=== PATIENT | male | born 1985 | race African-American/Black ===

== ENCOUNTER 2022-04-12 17:23 | Emergency (ER) | payer MEDICAID ==
[~2022-04-12] VITALS: Ht 175.3 cm; Wt 73.0 kg
[2022-04-12] MEDS ORDERED: FAMOTIDINE 20MG/2ML VIAL IV STA (17:33)
[2022-04-12] MEDS ORDERED: METOCLOPRAMIDE HCL 10MG/2ML VIAL IV STA (17:33)
[2022-04-12] MEDS ORDERED: SODIUM CHLORIDE 0.9% 1,000 ML IV ONE ×2 (17:45)
[2022-04-12] MEDS ORDERED: INSULIN REGULAR (HUMULIN R) 300UNITS/3ML VIAL IV ONE ×2 (17:45→20:30)
[2022-04-12] MEDS ORDERED: ACETAMINOPHEN 325MG TABLET PO ONE (18:15)
[2022-04-12 18:34] LABS: BASOPHILS % 0.9 % (0.0-2.0); EOSINOPHILS % 1.3 % (0.0-5.0); HEMATOCRIT. 41.3 % (42.0-52.0); HEMOGLOBIN. 14.1 g/dL (14.0-18.0); LYMPHOCYTES % 20.8 % (20.0-50.0); MEAN CORPUSCULAR HEMOGLOBIN 30.6 pg (28.0-32.0); MEAN CORPUSCULAR VOLUME 89.8 fL (80.0-94.0); MEAN PLATELET VOLUME 8.4 fl (7.4-10.4); MONOCYTES % 8.6 % (2.0-8.0); NEUTROPHILS % 68.4 % (40.0-76.0); PLATELET 224 x1000/uL (130-400); RED CELL DISTRIBUTION WIDTH 12.3 % (11.6-14.6)
[2022-04-12 18:36] LABS: CHLORIDE 100 mEq/L (98-107)
[2022-04-12 18:48] LABS: BETA HYDROXYBUTYRATE 0.1 mMol/L (0.0-0.3)
[2022-04-12] MEDS ORDERED: INSULIN REGULAR (HUMULIN R) 300UNITS/3ML VIAL IV NR (19:00)
[2022-04-12 22:00] VITALS: BP 121/82
== END 2022-04-12 22:40 | disposition home or self-care (01) ==
LOC: ER 17:23
DX: E11.65 Type 2 diabetes mellitus with hyperglycemia (principal); I10 Essential (primary) hypertension; Z79.4 Long term (current) use of insulin; Z86.73 Personal history of transient ischemic attack (TIA), and cerebral infarction without residual deficits
CPT/HCPCS: 36415; 80053; 82010; 82962; 85025; 93005; 96361; 96374; 96375; 96376; 99284; J1815; J2765; J3490; J7030

== ENCOUNTER 2023-09-16 09:23 | Emergency (ER) | payer MEDICAID, OTHER ==
[~2023-09-16] VITALS: Ht 182.9 cm; Wt 64.0 kg
[2023-09-16 09:24] VITALS: O2SAT 98
[2023-09-16] MEDS: SODIUM CHLORIDE 0.9% 1,000 ML IV ONE (09:49)
[2023-09-16 09:51] LABS: BG BASE EXCESS -8.9 mmol/L (-2.0-2.0); BG CARBOXYHEMOGLOBIN 1.6 % (0.5-1.5); BG DEOXYHEMOGLOBIN 2.2 % (0.0-5.0); BG FRACTION INSPIRED OXYGEN 21; BG HCO3 ACT 15.8 mmol/L (22.0-26.0); BG METHEMOGLOBIN 0.3 % (0.0-1.5); BG OXYGEN SATURATION 97.8 % (92.0-98.5); BG OXYHEMOGLOBIN 95.9 % (94.0-97.0); BG PCO2 30.8 mmHg (35.0-45.0); BG PH 7.329 (7.350-7.450); BG PO2 109.4 mmHg (75.0-100.0); BG SAMPLE SITE LEFT BRACHIAL; BG TOTAL HEMOGLOBIN 13.1 g/dL (12.0-18.0); BG VENT MODE ROOM AIR
[2023-09-16 09:58] LABS: BASOPHILS % 0.8 % (0.0-2.0); EOSINOPHILS % 5.4 % (0.0-5.0); HEMOGLOBIN. 13.1 g/dL (14.0-18.0); LYMPHOCYTES % 11.8 % (20.0-50.0); MEAN CORPUSCULAR HEMOGLOBIN 31.2 pg (28.0-32.0); MEAN CORPUSCULAR HGB CONC 34.6 g/dL (31.0-37.0); MEAN CORPUSCULAR VOLUME 90.3 fL (80.0-94.0); MEAN PLATELET VOLUME 8.8 fl (7.4-10.4); MONOCYTES % 7.7 % (2.0-8.0); NEUTROPHILS % 74.3 % (40.0-76.0); PLATELET 237 x1000/uL (130-400); RED BLOOD CELL COUNT 4.21 mill/uL (4.7-6.1); RED CELL DISTRIBUTION WIDTH 12.4 % (11.6-14.6); WHITE BLOOD COUNT 6.3 x1000/uL (4.5-11.0)
[2023-09-16 10:12] LABS: INR 0.9; PROTHROMBIN TIME 10.3 sec (9.6-11.0)
[2023-09-16 10:28] LABS: ALANINE AMINOTRANSFERASE 22 IU/L (10-49); ALBUMIN 4.4 g/dL (3.2-4.8); ASPARTATE AMINOTRANSFERASE 20 IU/L (<34); BETA HYDROXYBUTYRATE 0.6 mMol/L (0.0-0.3); BILIRUBIN TOTAL 0.7 mg/dL (0.1-1.0); CALCIUM 8.7 mg/dL (8.7-10.4); CARBON DIOXIDE 17 mEq/L (21-32); CHLORIDE 105 mEq/L (98-107); CREATINE KINASE 63 IU/L (46-171); CREATININE 1.3 mg/dL (0.6-1.3); POTASSIUM 3.7 mEq/L (3.5-5.1); PROTEIN TOTAL 7.1 g/dL (6.0-8.3); SODIUM 130 mEq/L (136-145); UREA NITROGEN BLOOD 15 mg/dL (9-23)
[2023-09-16 10:30] LABS: ETHANOL BLOOD < 10 mg/dL (<10); TROPONIN I HIGH SENSITIVITY < 4 ng/L (3.0-53)
[2023-09-16 10:41] LABS: GLUCOSE 408 mg/dL (70-105)
[2023-09-16] MEDS: INSULIN REGULAR (HUMULIN R) 300UNITS/3ML VIAL IV STA (10:56)
[2023-09-16 11:05] VITALS: TEMP 98.6
[2023-09-16] MEDS ORDERED: DEXTROSE 50% WATER 50ML SYRINGE IV PRN (13:30)
[2023-09-16] MEDS ORDERED: ONDANSETRON HCL 4MG/2ML INJ IV PRN (13:30)
[2023-09-16] MEDS ORDERED: ACETAMINOPHEN 325MG TABLET PO PRN (13:30)
[2023-09-16 14:10] VITALS: BP 108/67; PULSE 87; RESP 10
[2023-09-16] MEDS: INSULIN GLARGINE 100 UNITS/ML SUBCUT NR (14:10)
[2023-09-16] MEDS: KETOROLAC 30MG/ML VIAL IV PRN (14:10)
[2023-09-16] MEDS ORDERED: BLOOD SUGAR DIAGNOSTIC STRIP TEST SCH (17:00)
[2023-09-16] MEDS ORDERED: INSULIN LISPRO 100 UNITS/ML SUBCUT SCH (18:20)
[2023-09-16] MEDS ORDERED: INSULIN GLARGINE 100 UNITS/ML SUBCUT SCH (22:00)
== END 2023-09-16 16:32 | disposition left against medical advice (07) ==
LOC: ER 09:46 → EDBEDREQ 11:03 → EDBEDREQTM 11:03 → CANBEDREQ 16:27 → ER 16:32
DX: R41.82 Altered mental status, unspecified (principal); E11.65 Type 2 diabetes mellitus with hyperglycemia; I10 Essential (primary) hypertension; Z86.73 Personal history of transient ischemic attack (TIA), and cerebral infarction without residual deficits; F12.10 Cannabis abuse, uncomplicated
CPT/HCPCS: 80053; 82010; 80320; 82550; 82962; 83880; 83605; 83690; 85025; 85610; 86850; 86900; 86901; 87040; 84484; 36415; 84145; 73502; 71045; 70450; 72125; 82805; 82375; 93005; 96361; 96372; 96374; 96375; 99285; 36600; J1815 ×2; J1885; J7030; Z7610 ×3; G0480

== ENCOUNTER 2023-10-18 07:09 | Emergency (ER) | payer MEDICAID, OTHER ==
[~2023-10-18] VITALS: Ht 182.9 cm; Wt 82.0 kg
[2023-10-18 07:10] VITALS: O2SAT 100
[2023-10-18] MEDS: SODIUM CHLORIDE 0.9% 1,000 ML IV ONE (07:30)
[2023-10-18 07:46] LABS: BASOPHILS % 1.1 % (0.0-2.0); EOSINOPHILS % 1.1 % (0.0-5.0); HEMATOCRIT. 31.9 % (42.0-52.0); HEMOGLOBIN. 11.2 g/dL (14.0-18.0); LYMPHOCYTES % 15.2 % (20.0-50.0); MEAN CORPUSCULAR HEMOGLOBIN 30.7 pg (28.0-32.0); MEAN CORPUSCULAR VOLUME 87.6 fL (80.0-94.0); MEAN PLATELET VOLUME 7.9 fl (7.4-10.4); MONOCYTES % 6.6 % (2.0-8.0); PLATELET 316 x1000/uL (130-400); RED BLOOD CELL COUNT 3.64 mill/uL (4.7-6.1); RED CELL DISTRIBUTION WIDTH 12.9 % (11.6-14.6); WHITE BLOOD COUNT 5.6 x1000/uL (4.5-11.0)
[2023-10-18 07:55] LABS: PROTHROMBIN TIME 10.8 sec (9.6-11.0)
[2023-10-18 07:56] LABS: CHLORIDE 102 mEq/L (98-107); POTASSIUM 3.9 mEq/L (3.5-5.1); SODIUM 136 mEq/L (136-145)
[2023-10-18 07:57] LABS: CALCIUM 10.2 mg/dL (8.7-10.4); CARBON DIOXIDE 23 mEq/L (21-32)
[2023-10-18 08:02] LABS: CREATININE 1.5 mg/dL (0.6-1.3); GLUCOSE 353 mg/dL (70-105); UREA NITROGEN BLOOD 22 mg/dL (9-23)
[2023-10-18 08:03] LABS: TROPONIN I HIGH SENSITIVITY < 4 ng/L (3.0-53)
[2023-10-18 08:04] LABS: ALANINE AMINOTRANSFERASE 24 IU/L (10-49); ALBUMIN 4.7 g/dL (3.2-4.8); ASPARTATE AMINOTRANSFERASE 17 IU/L (<34); BILIRUBIN DIRECT 0.2 mg/dL (<=3.0); BILIRUBIN TOTAL 0.6 mg/dL (0.1-1.0)
[2023-10-18 09:17] LABS: BETA HYDROXYBUTYRATE 0.1 mMol/L (0.0-0.3)
[2023-10-18] MEDS: METOCLOPRAMIDE HCL 10MG/2ML VIAL IV ONE (09:32)
[2023-10-18] MEDS ORDERED: DEXTROSE 50% WATER 50ML SYRINGE IV PRN (10:00)
[2023-10-18 10:13] VITALS: BP 107/76; PULSE 80; RESP 16; TEMP 98
[2023-10-18] MEDS ORDERED: ONDA4TAB11 PO (10:32)
[2023-10-18] MEDS ORDERED: BLOOD SUGAR DIAGNOSTIC STRIP TEST SCH (13:00)
[2023-10-18] MEDS ORDERED: INSULIN LISPRO 100 UNITS/ML SUBCUT SCH (13:20)
== END 2023-10-18 10:14 | disposition home or self-care (01) ==
LOC: ER 07:09
DX: E11.65 Type 2 diabetes mellitus with hyperglycemia (principal); N17.9 Acute kidney failure, unspecified; E86.0 Dehydration; F12.10 Cannabis abuse, uncomplicated; Z98.890 Other specified postprocedural states
CPT/HCPCS: 80076; 80048; 82010; 82962; 83605; 83690; 85025; 85610; 87040; 84484; 36415; 71045; 73630; 93005; 96361; 96374; 99284; J2765; J7030; Z7610

== ENCOUNTER 2024-10-14 17:21 | Inpatient (IN) | payer MEDICAID ==
[~2024-10-14] VITALS: Ht 188 cm; Wt 61.7 kg
[~2024-10-14 17:21] MED LIST: ONDA-239 PO
[2024-10-14] MEDS: DEXTROSE 10% WATER 500 ML IV ONE (18:15)
[2024-10-14] MEDS: DEXTROSE 50% WATER 50ML SYRINGE IV ONE (18:20)
[2024-10-14 18:43] LABS: CHLORIDE 119 mEq/L (98-107); POTASSIUM 4.2 mEq/L (3.5-5.1); SODIUM 140 mEq/L (136-145)
[2024-10-14 18:44] LABS: CARBON DIOXIDE 13 mEq/L (21-32)
[2024-10-14 18:48] LABS: BASOPHILS % 1.2 % (0.0-2.0); EOSINOPHILS % 1.5 % (0.0-5.0); HEMATOCRIT. 27.2 % (42.0-52.0); HEMOGLOBIN. 9.1 g/dL (14.0-18.0); LYMPHOCYTES % 16.6 % (20.0-50.0); MEAN CORPUSCULAR HGB CONC 33.5 g/dL (31.0-37.0); MEAN CORPUSCULAR VOLUME 92.7 fL (80.0-94.0); MEAN PLATELET VOLUME 8.2 fl (7.4-10.4); NEUTROPHILS % 74.7 % (40.0-76.0); PLATELET 189 x1000/uL (130-400); RED BLOOD CELL COUNT 2.93 mill/uL (4.7-6.1); WHITE BLOOD COUNT 5.1 x1000/uL (4.5-11.0)
[2024-10-14 18:49] LABS: ETHANOL BLOOD < 10 mg/dL (<10); TROPONIN I HIGH SENSITIVITY 4 ng/L (3.0-53); UREA NITROGEN BLOOD 18 mg/dL (9-23)
[2024-10-14 19:00] LABS: GLUCOSE 114 mg/dL (70-105)
[2024-10-14 19:06] LABS: INR 0.9; PROTHROMBIN TIME 10.2 sec (9.6-11.0)
[2024-10-14] MEDS: SODIUM CHLORIDE 0.9% 1,000 ML IV ONE ×2 (20:05→21:07)
[2024-10-14] MEDS: ACETAMINOPHEN 325MG TABLET PO STA (20:37)
[2024-10-14] MEDS: ONDANSETRON 4MG ODT PO STA (20:37)
[2024-10-14] MEDS ORDERED: SODIUM CHLORIDE 0.9% 1,000 ML IV ONE (21:15)
[2024-10-14] MEDS: KETOROLAC 15MG/ML VIAL IV ONE (22:46)
[2024-10-15] VITALS (9 sets, daily range): BP systolic 75–106; BP diastolic 35–68; PULSE 45–92; RESP 16–19; TEMP 36.3–36.5; O2SAT 96–100
[2024-10-15] MEDS ORDERED: CLONIDINE 0.1MG TABLET PO PRN (01:00)
[2024-10-15] MEDS ORDERED: DEXTROSE 50% WATER 50ML SYRINGE IV PRN (01:00)
[2024-10-15] MEDS ORDERED: NALOXONE HCL 0.4MG/ML VIAL IV PRN (01:15)
[2024-10-15] MEDS: DEXTROSE 5% WATER 1,000 ML IV SCH (01:40)
[2024-10-15] MEDS: BLOOD SUGAR DIAGNOSTIC STRIP TEST SCH (06:03)
[2024-10-15 06:53] LABS: CLARITY URINE CLEAR (CLEAR); COLOR URINE YELLOW (YELLOW); GLUCOSE URINE TRACE (NEGATIVE); KETONES URINE NEGATIVE (NEGATIVE); LEUKOCYTE ESTERASE URINE NEGATIVE (NEGATIVE); NITRITE URINE NEGATIVE (NEGATIVE); OCCULT BLOOD URINE NEGATIVE (NEGATIVE); PH URINE 5.5 (4.5-8.0); PROTEIN URINE 1+ (NEGATIVE); SPECIFIC GRAVITY URINE 1.012 (1.005-1.030); UROBILINOGEN URINE 0.2 E.U./dL (0.2-1.0)
[2024-10-15 07:08] LABS: POTASSIUM 4.9 mEq/L (3.5-5.1)
[2024-10-15 07:11] LABS: HEMATOCRIT 25.7 % (42.0-52.0); HEMOGLOBIN 8.7 g/dL (14.0-18.0); MEAN CORPUSCULAR HGB CONC 33.8 g/dL (31.0-37.0); MEAN CORPUSCULAR VOLUME 91.7 fL (80.0-94.0); PLATELET 197 x1000/uL (130-400); RED CELL DISTRIBUTION WIDTH 12.9 % (11.6-14.6); WHITE BLOOD COUNT 6.6 x1000/uL (4.5-11.0)
[2024-10-15 07:13] LABS: *AMPHETAMINES SCREEN URINE NEGATIVE (NEGATIVE); *BARBITURATES SCREEN URINE NEGATIVE (NEGATIVE); *BENZODIAZEPINES SCREEN URINE NEGATIVE (NEGATIVE); *COCAINE SCREEN URINE NEGATIVE (NEGATIVE); CANNABINOID URINE SCREEN PRESUMPTIVE POSITIVE (NEGATIVE); ECSTASY MDMA SCREEN URINE NEGATIVE (NEGATIVE); METHADONE URINE SCREEN NEGATIVE (NEGATIVE); OPIATES URINE SCREEN NEGATIVE (NEGATIVE); PHENCYCLIDINE URINE SCREEN NEGATIVE (NEGATIVE)
[2024-10-15 07:16] LABS: THYROID STIMULATING HORMONE 2.76 uIU/mL (0.55-4.78)
[2024-10-15 07:19] LABS: BACTERIA URINE TRACE; RBC URINE NONE SEEN /hpf (0-2); SQUAMOUS EPITHELIAL CELL URINE NONE SEEN /lpf (RARE/1+); WBC URINE 0-2 /hpf (0-2)
[2024-10-15] MEDS: HYDROCODONE/ACETAMINOPHEN 5/325MG TABLET PO PRN (08:29)
[2024-10-15] MEDS: ENOXAPARIN 40MG/0.4ML SYR SUBCUT SCH (08:30)
[2024-10-15] MEDS: ONDANSETRON HCL 4MG/2ML INJ IV SCH (13:52)
[2024-10-15] MEDS: SODIUM CHLORIDE 0.9% 1,000 ML IV ONE (16:40)
[2024-10-15] MEDS: MIDODRINE HCL 5MG TABLET PO SCH (18:07)
[2024-10-15] MEDS: DEXT 5%/0.9% NACL 1,000 ML IV SCH (18:20)
[2024-10-15] MEDS: INSULIN LISPRO 100 UNITS/ML SUBCUT SCH (21:38)
[2024-10-16] MEDS: ONDANSETRON HCL 4MG/2ML INJ IV PRN (01:52)
[2024-10-16 04:00] VITALS: BP 98/46; PULSE 73; RESP 18; TEMP 36.4; O2SAT 98
[2024-10-16 08:00] VITALS: BP 81/38; PULSE 81; RESP 17; TEMP 36.4; O2SAT 100
[2024-10-16 12:00] VITALS: BP 98/63; PULSE 87; RESP 19; TEMP 36.9; O2SAT 99
[2024-10-16 16:00] VITALS: BP 91/52; PULSE 64; RESP 18; TEMP 36.9; O2SAT 100
[2024-10-16 20:00] VITALS: BP 109/65; PULSE 86; RESP 18; TEMP 36.7; O2SAT 97
[2024-10-16 22:08] LABS: CARBON DIOXIDE 16 mEq/L (21-32); CHLORIDE 117 mEq/L (98-107); POTASSIUM 5.9 mEq/L (3.5-5.1); SODIUM 140 mEq/L (136-145)
[2024-10-16 22:09] LABS: CALCIUM 7.7 mg/dL (8.7-10.4)
[2024-10-16 22:13] LABS: CREATININE 2.3 mg/dL (0.6-1.3); GLUCOSE 203 mg/dL (70-105)
[2024-10-16 22:14] LABS: UREA NITROGEN BLOOD 24 mg/dL (9-23)
[2024-10-16 22:15] LABS: ALANINE AMINOTRANSFERASE 51 IU/L (10-49); ALBUMIN 3.1 g/dL (3.2-4.8); ASPARTATE AMINOTRANSFERASE 30 IU/L (<34)
[2024-10-16 22:16] LABS: BILIRUBIN TOTAL 0.3 mg/dL (0.1-1.0)
[2024-10-16 22:21] LABS: PROTEIN TOTAL 5.2 g/dL (6.0-8.3)
[2024-10-16 23:55] VITALS: BP 106/68; PULSE 86; RESP 19; TEMP 36.4; O2SAT 97
[2024-10-17 03:53] VITALS: BP 102/64; PULSE 90; RESP 18; TEMP 36.2; O2SAT 98
[2024-10-17 08:00] VITALS: BP 118/79; PULSE 93; RESP 18; TEMP 36.5; O2SAT 100
[2024-10-17 12:00] VITALS: BP 103/58; PULSE 95; RESP 18; TEMP 36.6; O2SAT 100
[2024-10-17] MEDS: SODIUM POLYSTYRENE SULFONATE 15 G/60 ML BOT PO NR (13:34)
[2024-10-17 14:47] LABS: BASOPHILS % 0.9 % (0.0-2.0); EOSINOPHILS % 1.8 % (0.0-5.0); HEMATOCRIT. 24.2 % (42.0-52.0); LYMPHOCYTES % 22.6 % (20.0-50.0); MEAN CORPUSCULAR HEMOGLOBIN 30.8 pg (28.0-32.0); MEAN CORPUSCULAR HGB CONC 33.1 g/dL (31.0-37.0); MEAN CORPUSCULAR VOLUME 93.3 fL (80.0-94.0); MEAN PLATELET VOLUME 8.1 fl (7.4-10.4); MONOCYTES % 8.8 % (2.0-8.0); NEUTROPHILS % 65.9 % (40.0-76.0); PLATELET 167 x1000/uL (130-400); RED BLOOD CELL COUNT 2.59 mill/uL (4.7-6.1); RED CELL DISTRIBUTION WIDTH 14.3 % (11.6-14.6); WHITE BLOOD COUNT 4.5 x1000/uL (4.5-11.0)
[2024-10-17 14:58] LABS: CHLORIDE 115 mEq/L (98-107); POTASSIUM 5.5 mEq/L (3.5-5.1); SODIUM 140 mEq/L (136-145)
[2024-10-17 14:59] LABS: CALCIUM 7.9 mg/dL (8.7-10.4); CARBON DIOXIDE 18 mEq/L (21-32)
[2024-10-17 15:04] LABS: CREATININE 1.9 mg/dL (0.6-1.3); GLUCOSE 154 mg/dL (70-105); UREA NITROGEN BLOOD 26 mg/dL (9-23)
[2024-10-17 15:06] LABS: ALANINE AMINOTRANSFERASE 110 IU/L (10-49); ALBUMIN 3.3 g/dL (3.2-4.8); AMMONIA < 17 uMol/L (<32); ASPARTATE AMINOTRANSFERASE 108 IU/L (<34); PROTEIN TOTAL 5.3 g/dL (6.0-8.3)
[2024-10-17 15:07] LABS: BILIRUBIN TOTAL 0.4 mg/dL (0.1-1.0)
[2024-10-17 16:00] VITALS: BP 121/71; PULSE 83; RESP 18; TEMP 36.6; O2SAT 97
[2024-10-17 17:39] LABS: IRON 70 ug/dL (65-175)
[2024-10-17 17:40] LABS: C REACTIVE PROTEIN HIGH SENS 2.96 mg/l (<1.00)
[2024-10-17 17:42] LABS: TOTAL IRON BINDING CAPACITY 184 ug/dl (250-425)
[2024-10-17] MEDS: LOPERAMIDE HCL 2MG CAPSULE PO SCH (17:44)
[2024-10-17 18:55] LABS: FOLIC ACID (FOLATE) SERUM 7.44 ng/mL (>5.38)
[2024-10-17 18:56] LABS: FERRITIN 499 ng/mL (22-322); VITAMIN B12 SERUM 487 pg/mL (211-911)
[2024-10-17 20:00] VITALS: BP 103/60; PULSE 94; RESP 20; TEMP 36.6; O2SAT 98
[2024-10-18] VITALS: BP_SYST 101; BP_SYST 102; BP_SYST 98; BP_DIAS 42; BP_DIAS 48; BP_DIAS 63; PULSE 94; RESP 20; TEMP 36.9; O2SAT 95
[2024-10-18 04:00] VITALS: BP 105/66; PULSE 92; RESP 20; TEMP 36.9; O2SAT 98
[2024-10-18 07:56] VITALS: BP_SYST 104; BP_SYST 105; BP_DIAS 57; BP_DIAS 60; PULSE 104; PULSE 107; RESP 20; TEMP 36.7; O2SAT 100
[2024-10-18] MEDS: PANTOPRAZOLE 40MG DR TABLET PO SCH (08:06)
[2024-10-18 09:11] LABS: CALCIUM 8.3 mg/dL (8.7-10.4); CARBON DIOXIDE 16 mEq/L (21-32); CHLORIDE 119 mEq/L (98-107); POTASSIUM 5.2 mEq/L (3.5-5.1); SODIUM 146 mEq/L (136-145)
[2024-10-18 09:16] LABS: CREATININE 2.3 mg/dL (0.6-1.3); GLUCOSE 300 mg/dL (70-105)
[2024-10-18 09:17] LABS: UREA NITROGEN BLOOD 25 mg/dL (9-23)
[2024-10-18 09:19] LABS: PHOSPHORUS 2.8 mg/dL (2.5-4.9)
[2024-10-18] MEDS: SODIUM ZIRCONIUM CYCLOSILICATE 10GM/PACKET PO NR (10:43)
[2024-10-18 12:03] VITALS: BP 121/80; PULSE 87; RESP 18; TEMP 36.6; O2SAT 98
[2024-10-18] MEDS: SODIUM BICARBONATE 100 MEQ in DEXTROSE 5% WATER 900 ML IV SCH (13:00)
[2024-10-18] MEDS: INSULIN GLARGINE 100 UNITS/ML SUBCUT SCH (14:19)
[2024-10-18] MEDS: MAGNESIUM 2 G PREMIX 50 ML IV NR (15:37)
[2024-10-18 16:00] VITALS: BP 128/87; PULSE 77; RESP 20; TEMP 36.8; O2SAT 100
[2024-10-18 20:00] VITALS: BP_SYST 103; BP_SYST 106; BP_SYST 89; BP_DIAS 55; BP_DIAS 63; BP_DIAS 67; PULSE 90; RESP 18; TEMP 36.6; O2SAT 99
[2024-10-19] VITALS: BP 105/63; PULSE 81; RESP 18; TEMP 36.4; O2SAT 95
[2024-10-19 04:00] VITALS: BP 102/56; PULSE 89; RESP 20; TEMP 36.8; O2SAT 96
[2024-10-19 06:11] LABS: CHLORIDE 115 mEq/L (98-107); POTASSIUM 5.5 mEq/L (3.5-5.1); SODIUM 142 mEq/L (136-145)
[2024-10-19 06:12] LABS: CALCIUM 8.1 mg/dL (8.7-10.4); CARBON DIOXIDE 20 mEq/L (21-32)
[2024-10-19 06:16] LABS: UREA NITROGEN BLOOD 20 mg/dL (9-23)
[2024-10-19 06:17] LABS: CREATININE 2.3 mg/dL (0.6-1.3); GLUCOSE 214 mg/dL (70-105)
[2024-10-19 06:19] LABS: ALANINE AMINOTRANSFERASE 98 IU/L (10-49); ALBUMIN 3.2 g/dL (3.2-4.8); ASPARTATE AMINOTRANSFERASE 54 IU/L (<34); BILIRUBIN DIRECT < 0.1 mg/dL (<=3.0); BILIRUBIN TOTAL 0.3 mg/dL (0.1-1.0); PHOSPHORUS 2.8 mg/dL (2.5-4.9); PROTEIN TOTAL 5.2 g/dL (6.0-8.3)
[2024-10-19 06:31] LABS: HEPATITIS B SURFACE ANTIGEN NEGATIVE (Negative)
[2024-10-19 06:51] LABS: HEPATITIS A AB IGM NEGATIVE (Negative)
[2024-10-19 06:52] LABS: HEPATITIS B CORE AB IGM NEGATIVE (Negative); HEPATITIS C AB NON REACTIVE (Neg) (Negative)
[2024-10-19 08:10] VITALS: BP 131/80; PULSE 80; RESP 18; TEMP 36.7; O2SAT 97
[2024-10-19] MEDS: SODIUM ZIRCONIUM CYCLOSILICATE 10GM/PACKET PO NR (08:15)
[2024-10-19 08:17] LABS: EOSINOPHILS % 2.6 % (0.0-5.0); HEMOGLOBIN. 7.4 g/dL (14.0-18.0); LYMPHOCYTES % 25.1 % (20.0-50.0); MEAN CORPUSCULAR HEMOGLOBIN 31.3 pg (28.0-32.0); MEAN CORPUSCULAR HGB CONC 33.6 g/dL (31.0-37.0); MEAN CORPUSCULAR VOLUME 93.2 fL (80.0-94.0); MEAN PLATELET VOLUME 8.6 fl (7.4-10.4); MONOCYTES % 8.8 % (2.0-8.0); NEUTROPHILS % 62.5 % (40.0-76.0); PLATELET 148 x1000/uL (130-400); RED BLOOD CELL COUNT 2.36 mill/uL (4.7-6.1); RED CELL DISTRIBUTION WIDTH 14.5 % (11.6-14.6); WHITE BLOOD COUNT 4.3 x1000/uL (4.5-11.0)
[2024-10-19] MEDS: INSULIN GLARGINE 100 UNITS/ML SUBCUT SCH (09:49)
[2024-10-19] MEDS ORDERED: ALBUTEROL (0.5%) 2.5MG/0.5ML NEB HHN NR (11:00)
[2024-10-19 11:58] VITALS: BP 91/55; PULSE 86; RESP 20; TEMP 36.6; O2SAT 97
[2024-10-19] MEDS: SORBITOL 70% SOLN 30ML PO SCH (12:19)
[2024-10-19 15:51] VITALS: BP 144/91; PULSE 93; RESP 18; TEMP 36.8; O2SAT 98
[2024-10-19 20:00] VITALS: BP 114/70; PULSE 82; RESP 18; TEMP 36.6; O2SAT 97
[2024-10-20] VITALS: BP 124/82; PULSE 95; RESP 18; TEMP 36.4; O2SAT 97
[2024-10-20] MEDS ORDERED: NALOXONE HCL 0.4MG/ML VIAL IV PRN (01:45)
[2024-10-20] MEDS ORDERED: TRAMADOL 50MG TABLET PO PRN (01:45)
[2024-10-20] MEDS: GABAPENTIN 400MG CAPSULE PO SCH (01:45)
[2024-10-20 04:00] VITALS: BP 123/87; PULSE 86; RESP 18; TEMP 36.3; O2SAT 99
[2024-10-20 07:25] LABS: BASOPHILS % 0.8 % (0.0-2.0); HEMATOCRIT. 25.1 % (42.0-52.0); HEMOGLOBIN. 8.3 g/dL (14.0-18.0); LYMPHOCYTES % 19.9 % (20.0-50.0); MEAN CORPUSCULAR HEMOGLOBIN 31.2 pg (28.0-32.0); MEAN CORPUSCULAR HGB CONC 33.2 g/dL (31.0-37.0); MEAN CORPUSCULAR VOLUME 93.7 fL (80.0-94.0); MONOCYTES % 9.3 % (2.0-8.0); PLATELET 169 x1000/uL (130-400); RED BLOOD CELL COUNT 2.67 mill/uL (4.7-6.1); RED CELL DISTRIBUTION WIDTH 14.7 % (11.6-14.6); WHITE BLOOD COUNT 5.2 x1000/uL (4.5-11.0)
[2024-10-20 07:42] LABS: INR 0.9
[2024-10-20] MEDS: GABAPENTIN 300MG CAPSULE PO SCH (08:00)
[2024-10-20 08:16] LABS: CALCIUM 8.6 mg/dL (8.7-10.4)
[2024-10-20 08:37] LABS: CREATININE 1.6 mg/dL (0.6-1.3)
[2024-10-20 12:04] VITALS: BP 129/71; PULSE 87; RESP 18; TEMP 36.6; O2SAT 99
[2024-10-20] MEDS ORDERED: ETOMIDATE 2MG/ML 10ML VIAL IV ONE (13:13)
[2024-10-20] MEDS ORDERED: PROPOFOL 200MG/20ML VIAL IV ONE (13:13)
[2024-10-20] MEDS ORDERED: HYDRALAZINE 20MG/ML VIAL IV PRN (14:15)
[2024-10-20] MEDS ORDERED: GLYCOPYRROLATE 0.2 MG/ML 2ML VIAL IV PRN (14:15)
[2024-10-20] MEDS ORDERED: DEXAMETHASONE 4MG/ML 1ML VIAL IV PRN (14:15)
[2024-10-20] MEDS ORDERED: ONDANSETRON HCL 4MG/2ML INJ IV PRN (14:15)
[2024-10-20] MEDS ORDERED: HYDROMORPHONE HCL/PF 1MG/ML INJ IV PRN ×3 (14:15)
[2024-10-20] MEDS ORDERED: LABETALOL 5MG/ML 4ML INJ IV PRN (14:15)
[2024-10-20 16:00] VITALS: BP 94/62; PULSE 97; RESP 20; TEMP 36.9; O2SAT 100
[2024-10-20 20:00] VITALS: BP 110/74; PULSE 90; RESP 18; TEMP 36.3; O2SAT 99
[2024-10-21] VITALS: BP 125/73; PULSE 97; RESP 19; TEMP 36.3; O2SAT 100
[2024-10-21 04:00] VITALS: BP 114/68; PULSE 89; RESP 18; TEMP 36.6; O2SAT 100
[2024-10-21 08:00] VITALS: BP 128/86; PULSE 74; RESP 20; TEMP 36.7; O2SAT 97
[2024-10-21 09:20] LABS: POTASSIUM 4.9 mEq/L (3.5-5.1)
[2024-10-21 09:21] LABS: BASOPHILS % 0.7 % (0.0-2.0); CALCIUM 8.6 mg/dL (8.7-10.4); EOSINOPHILS % 1.5 % (0.0-5.0); HEMATOCRIT. 25.8 % (42.0-52.0); HEMOGLOBIN. 8.7 g/dL (14.0-18.0); LYMPHOCYTES % 19.4 % (20.0-50.0); MEAN CORPUSCULAR HEMOGLOBIN 31.2 pg (28.0-32.0); MEAN CORPUSCULAR HGB CONC 33.8 g/dL (31.0-37.0); MEAN CORPUSCULAR VOLUME 92.3 fL (80.0-94.0); MONOCYTES % 7.7 % (2.0-8.0); NEUTROPHILS % 70.7 % (40.0-76.0); PLATELET 162 x1000/uL (130-400); RED BLOOD CELL COUNT 2.79 mill/uL (4.7-6.1); RED CELL DISTRIBUTION WIDTH 13.8 % (11.6-14.6); WHITE BLOOD COUNT 4.2 x1000/uL (4.5-11.0)
[2024-10-21 09:26] LABS: CREATININE 1.7 mg/dL (0.6-1.3)
[2024-10-21 12:00] VITALS: BP 123/75; PULSE 76; RESP 20; TEMP 36.7; O2SAT 95
[2024-10-21] MEDS: MESALAMINE 400 MG CAPSULE.DR PO SCH (12:29)
[2024-10-21 16:00] VITALS: BP 101/62; PULSE 82; RESP 18; TEMP 36.4; O2SAT 94
[2024-10-21 20:00] VITALS: BP 119/74; PULSE 79; RESP 20; TEMP 36.4; O2SAT 100
[2024-10-21] MEDS ORDERED: IOHEXOL-300 100 ML BOTTLE ONE (23:43)
[2024-10-22] VITALS: BP 132/92; PULSE 82; RESP 20; TEMP 36.5; O2SAT 98
[2024-10-22 04:00] VITALS: BP 109/71; PULSE 87; RESP 20; TEMP 36.3; O2SAT 100
[2024-10-22 06:44] LABS: EOSINOPHILS % 2.3 % (0.0-5.0); HEMATOCRIT. 26.8 % (42.0-52.0); HEMOGLOBIN. 9.1 g/dL (14.0-18.0); LYMPHOCYTES % 24.7 % (20.0-50.0); MEAN CORPUSCULAR HEMOGLOBIN 31.4 pg (28.0-32.0); MEAN CORPUSCULAR HGB CONC 33.7 g/dL (31.0-37.0); MEAN CORPUSCULAR VOLUME 93.1 fL (80.0-94.0); MEAN PLATELET VOLUME 8.1 fl (7.4-10.4); MONOCYTES % 9.1 % (2.0-8.0); NEUTROPHILS % 62.9 % (40.0-76.0); PLATELET 183 x1000/uL (130-400); RED BLOOD CELL COUNT 2.88 mill/uL (4.7-6.1); RED CELL DISTRIBUTION WIDTH 13.5 % (11.6-14.6); WHITE BLOOD COUNT 3.6 x1000/uL (4.5-11.0)
[2024-10-22 06:46] LABS: CHLORIDE 106 mEq/L (98-107); POTASSIUM 5.5 mEq/L (3.5-5.1); SODIUM 140 mEq/L (136-145)
[2024-10-22 06:47] LABS: CARBON DIOXIDE 26 mEq/L (21-32)
[2024-10-22 06:52] LABS: CREATININE 2.2 mg/dL (0.6-1.3); GLUCOSE 215 mg/dL (70-105); UREA NITROGEN BLOOD 15 mg/dL (9-23)
[2024-10-22 06:54] LABS: ALANINE AMINOTRANSFERASE 134 IU/L (10-49); ALBUMIN 3.6 g/dL (3.2-4.8); ASPARTATE AMINOTRANSFERASE 64 IU/L (<34); BILIRUBIN TOTAL 0.3 mg/dL (0.1-1.0); PROTEIN TOTAL 6.3 g/dL (6.0-8.3)
[2024-10-22 08:00] VITALS: BP 111/61; PULSE 78; RESP 18; TEMP 36.6; O2SAT 98
[2024-10-22 10:09] LABS: ATYPICAL pANCA <1:20 titer (Neg:<1:20)
[2024-10-22 12:00] VITALS: BP 100/66; PULSE 77; RESP 16; TEMP 36.4; O2SAT 98
[2024-10-22 13:12] LABS: SACCHAROMYCES CEREVISIAE IGG 26.2 Units (0.0-24.9); SACCHAROMYCES CEREVISIAE IGM <20.0 Units (0.0-24.9)
[2024-10-22] MEDS ORDERED: GABA-1180 PO (13:31)
[2024-10-22] MEDS ORDERED: MESA400C PO (13:31)
[2024-10-22 16:00] VITALS: BP 114/66; PULSE 82; RESP 18; TEMP 35.7; O2SAT 99
[2024-10-22 17:22] VITALS: BP 110/72; PULSE 68; TEMP 97.9; O2SAT 69
[2024-10-22 17:29] LABS: POTASSIUM 5.4 mEq/L (3.5-5.1)
== END 2024-10-22 18:40 | disposition home or self-care (01) | DRG 380 ==
LOC: ER 17:21 → 7WST 22:18 → EDBEDREQ 22:22 → ENRESERV 22:48
PROVIDERS: ADMIT Internal Medicine; ATTEND Internal Medicine
PROC: 0DBB8ZX Excision of Ileum, Via Natural or Artificial Opening Endoscopic, Diagnostic (ICD-10-PCS; principal; 2024-10-20)
PROC: 0DBE8ZX Excision of Large Intestine, Via Natural or Artificial Opening Endoscopic, Diagnostic (ICD-10-PCS; 2024-10-20)
PROC: 0JBR0ZZ Excision of Left Foot Subcutaneous Tissue and Fascia, Open Approach (ICD-10-PCS; 2024-10-22)
DX: E11.649 Type 2 diabetes mellitus with hypoglycemia without coma (principal); L97.529 Non-pressure chronic ulcer of other part of left foot with unspecified severity; L97.519 Non-pressure chronic ulcer of other part of right foot with unspecified severity; I81 Portal vein thrombosis; G93.41 Metabolic encephalopathy; E46 Unspecified protein-calorie malnutrition; K50.00 Crohn's disease of small intestine without complications; I95.89 Other hypotension; N17.9 Acute kidney failure, unspecified; E87.20 Acidosis, unspecified; E83.51 Hypocalcemia; E11.22 Type 2 diabetes mellitus with diabetic chronic kidney disease; D50.9 Iron deficiency anemia, unspecified; E88.09 Other disorders of plasma-protein metabolism, not elsewhere classified; E11.42 Type 2 diabetes mellitus with diabetic polyneuropathy; E11.621 Type 2 diabetes mellitus with foot ulcer; G90.89 Other disorders of autonomic nervous system; K76.6 Portal hypertension; E11.51 Type 2 diabetes mellitus with diabetic peripheral angiopathy without gangrene; I12.9 Hypertensive chronic kidney disease with stage 1 through stage 4 chronic kidney disease, or unspecified chronic kidney disease; N18.30 Chronic kidney disease, stage 3 unspecified; E87.5 Hyperkalemia; R16.1 Splenomegaly, not elsewhere classified; F17.210 Nicotine dependence, cigarettes, uncomplicated; Z79.4 Long term (current) use of insulin; Z79.82 Long term (current) use of aspirin; Z86.73 Personal history of transient ischemic attack (TIA), and cerebral infarction without residual deficits; Z89.429 Acquired absence of other toe(s), unspecified side; Z68.1 Body mass index [BMI] 19.9 or less, adult
CPT/HCPCS: 36415; 71045; 74177; 76700; 80048; 80053; 80076; 80305; 80320; 81003; 82140; 82270; 82607; 82728; 82746; 82962; 83036; 83540; 83550; 83605; 83735; 84100; 84132; 84443; 84484; 85025; 85027; 85044; 85651; 86141; 86256; 86671; 86705; 86709; 87015; 87045; 87177; 87209; 87340; 87427; 87449; 88305; 89055; 93005; 93306; 96361; 96374; 99291; 99292; A4606; J1650; J1815; J1885; J2405; J2704; J3475; J3490; J7030; J7042; J7070; Q0162; Q9967; G0480